=== PATIENT | male | born 1930 | race Caucasian/White ===

== ENCOUNTER 2017-11-28 20:50 | Inpatient (IN) | payer MEDICARE, OTHER ==
--- NOTE | 2017-11-28 21:46 | ED Physician Chart ---
ED Chief Complaint/HPI - Patient Information Date Seen:: 11/28/17 Time Seen:: 21:00 Chief Complaint:: Agitation History of Present Illness:: onset x 3 days of agitation and hostile behavior; no report of trauma, SIs, H/As , neck pain, C/P, SOB, Abd. Pain, A/N/V/D/C, fever, chills, or urinary s/s Allergies:: Allergies Allergy/AdvReac Type Severity Reaction Status Date / Time No Known Allergies Allergy Verified 11/28/17 21:25 Vitals:: Vital Signs - 8 hr 11/28/17 21:00 Temp 97.2 F HR 60 RR 18 BP 157/74 O2 Sat % 100 Historian:: Patient, EMS Review:: Nurse's Note Reviewed, Old Chart Reviewed, EMS run form Reviewed ED Review of Systems - Review of Systems General/Constitutional: No fever, No chills, No weight loss, No weakness, No diaphoresis, No edema, No loss of appetite Skin: No skin lesions, No rash, No bruising Head: No headache, No light-headedness Eyes: No loss of vision, No pain, No diplopia ENT: No earache, No nasal drainage, No sore throat, No tinnitus Neck: No neck pain, No swelling, No thyromegaly, No stiffness, No mass noted Cardio Vascular: No chest pain, No palpitations, No PND, No orthopnea, No edema Pulmonary: No SOB, No cough, No sputum, No wheezing GI: No nausea, No vomiting, No diarrhea, No pain, No melena, No hematochezia, No constipation, No hematemesis G/U: No dysuria, No frequency, No hematuria, No nacturia Musculoskeletal: No bone or joint pain, No back pain, No muscle pain Endocrine: No polyuria, No polydipsia Psychiatric: Prior psych history, Depression, Anxiety, No suicidal ideation, No homicidal ideation, No auditory hallucination, No visual hallucination Hematopoietic: No bruising, No lymphadenopathy Allergic/Immuno: No urticaria, No angioedema Neurological: No syncope, No focal symptoms, No weakness, No paresthesia, No headache, No seizure, No dizziness, No confusion, No vertigo ED Past Medical History - Past Medical History Obtainable: Yes Past Medical History: HTN, Dyslipidemia Family History: HTN Social History: Non Smoker, No Alcohol, No Drug Use, Single, Care Facility Surgical History: None Psychiatricy History: Bipolar Medication: Reviewed Family Medical History - Family Member Mother History Unknown: Yes ED Physical Exam - Physical Examination General/Constitutional: Awake, Well-developed, well-nourished, Alert, No distress, GCS 15, Non-toxic appearing, Ambulatory Head: Atraumatic Eyes: Lids, conjuctiva normal, PERRL, EOMI Skin: Nl inspection, No rash, No skin lesions, No ecchymosis, Well hydrated, No lymphadenopathy ENMT: External ears, nose nl, TM canals nl, Nasal exam nl, Lips, teeth, gums nl , Oropharynx nl, Tonsils nl Neck: Nontender, Full ROM w/o pain, No JVD, No nuchal rigidity, No bruit, No mass, No stridor Respiratory: Nl effort/Exclusion, Clear to Auscultation, No Wheeze/Rhonchi/Rales Cardio Vascular: RRR, No murmur, gallop, rubs, NL S1 S2, Carotid/Femoral/Distal pulses equal bilaterally GI: No tenderness/rebounding/guarding, No organomegaly, No hernia, Normal BS's, Nondistended, No mass/bruits, No McBurney tenderness : No CVA tenderness Extremities: No tenderness or effusion, Full ROM, normal strength in all extremities, No edema, Normal digits & nails Neuro/Psych: Alert/oriented, DTR's symmetric, Normal sensory exam, Normal motor strength, Judgement/insight normal, Mood normal, Normal gait, No focal deficits Other Neuro/Psych comments:: + Psychomotor Agitation; no SIs; Mood/Affect: Labile Misc: Normal back, No paraspinal tenderness ED Labs/Radiology/EKG Results - Lab Results Comments:: Reviewed - EKG Interpretations EKG Time:: 21:15 Rate & Rhythm: 60; NSR Comments:: non-specific st-t changes ED Septic Shock - . Is Septic Shock (SBP<90, OR Lactate>4 mmol\L) present?: No - <6hrs of presentation: Vital Signs: Vital Signs - 8 hr 11/28/18 21:00 Temp 97.2 F HR 60 RR 18 BP 157/74 O2 Sat % 100 ED Reassessment (Disposition) - Reassessment Reassessment Condition:: Improved - Diagnosis Diagnosis:: Agitation; Medical Clearance; Psychosis; Bipolar Disorder - Aftercare/Follow up Instructions Aftercare/Follow-Up Instructions:: Counseled pt regarding lab results/diagnosis & need follow up, Counseled pt & family regarding lab results/diagnosis & need follow up - Patient Disposition Discharge/Transfer:: Acute Care w/in this hosp Admitted to:: [facility] Condition at Disposition:: Stable, Improved
[2017-11-28 22:02] LABS: % BASOPHILS 0.3 % (0.0-2.0); % EOSINOPHILS 2.8 % (0.0-5.0); % LYMPHOCYTES 21.5 % (20.0-50.0); % MONOCYTES 14.8 % (2.0-10.0); % NEUTROPHILS 60.6 % (40.0-80.0); EOSINOPHILE ABSOLUTE 0.1 Th/cmm (0.1-0.4); HEMATOCRIT 43.3 % (41.0-60); HEMOGLOBIN 14.9 gm/dL (12-16); LYMPHOCYTE ABSOLUTE 0.9 Th/cmm (1.5-3.0); MEAN CELL VOLUME 95.6 fl (80-99); MEAN CORPUSCULAR HEMOGLOBIN 32.9 pg (27.0-31.0); MEAN CORPUSCULAR HGB CONC 34.4 pg (28.0-36.0); MEAN PLATELET VOLUME 8.3 fl; MONOCYTE ABSOLUTE 0.6 Th/cmm (0.3-1.0); NEUTROPHILE ABSOLUTE 2.6 Th/cmm (1.8-8.0); PLATELET COUNT 122 Th/cmm (150-400); RED BLOOD COUNT 4.53 Mil/cmm (3.80-5.80); RED CELL DISTRIBUTION WIDTH 12.8 % (11.5-20.0); WHITE BLOOD COUNT 4.2 Th/cmm (4.8-10.8)
[2017-11-28 22:14] LABS: ALB/GLOB RATIO 1.4 (1.0-1.8); ALBUMIN 3.7 gm/dL (4.2-5.5); ALKALINE PHOSPHATASE 53 U/L (34-104); ANION GAP 10.8 (7.0-16.0); BILIRUBIN,TOTAL 0.5 mg/dL (0.3-1.0); BUN - UREA NITROGEN 36 mg/dL (7-25); CALCIUM SERUM 9.6 mg/dL (8.6-10.3); CARBON DIOXIDE 26.5 mEq/L (21.0-31.0); CHLORIDE 103 mEq/L (98-107); CHOLESTEROL 139 mg/dL (<200); CREATININE - SERUM 1.8 mg/dL (0.7-1.3); GLUCOSE 108 mg/dL (70-105); HDL -HIGH DENSITY LIPOPROTEIN 36 mg/dL (23-92); POTASSIUM SERUM 4.3 mEq/L (3.5-5.1); SALICYLATES (ASPIRIN) < 25.0 mg/L (30.0-100.0); SGOT 15 U/L (13-39); SGPT/ALT 16 U/L (7-52); SODIUM SERUM 136 mEq/L (136-145); TOTAL PROTEIN,SERUM 6.3 gm/dL (6.0-8.3); TRIGLYCERIDES 85 mg/dL (<150)
[2017-11-28 23:07] LABS: ACETAMINOPHEN < 10.0 ug/mL (10.0-30.0)
[2017-11-28] MEDS ORDERED: Magnesium Hydroxide (MOM) 30 mL UDC PO PRN (23:13)
[2017-11-28] MEDS ORDERED: Maalox 30 mL Cup PO PRN (23:13)
[2017-11-28 23:31] VITALS: BP 153/96
[2017-11-29] MEDS ORDERED: Non-Formulary Item 1 EA (Valproic Acid [Depakene] 250 MG) PO SCH (09:00)
[2017-11-29] MEDS ORDERED: Non-Formulary Item 1 EA (Metoprolol Succinate [Metoprolol Succinate] 25 MG) PO SCH (09:00)
[2017-11-29] MEDS: Multivitamin Tab PO SCH (09:45)
--- NOTE | 2017-11-29 13:57 | Psychiatric Evaluation ---
DATE OF SERVICE: 11/28/2017 IDENTIFYING DATA: The patient is an 87-year-old male, resident of the [facility]. Information obtained directly interviewing the patient as well as reviewing the admission papers and they are reliable. JUSTIFICATION FOR HOSPITALIZATION: The patient is admitted here on a voluntary basis in view of his agitation and aggressive behavior. CHIEF COMPLAINT: "I do not understand why they had to bring me in here. I did not say much." HISTORY OF PRESENT ILLNESS: This is the first psychiatric hospitalization to [facility] for this patient who has been diagnosed to have mood disorder and is maintained on Depakote and Risperdal. On the day of the hospitalization, the patient has been getting out of control. The patient has been screaming and yelling and has been aggressive towards the staff members and hence has to be admitted over here for stabilization. Sleep and appetite prior to the hospitalization are reported to be poor. Compliance with the medication is noted to be fair. PAST PSYCHIATRIC HISTORY: Details are not known. ____ Physical examination is requested by Dr. Rojas. SUBSTANCE ABUSE HISTORY: None. PHYSICAL OR SEXUAL ABUSE HISTORY: None. LEGAL PROBLEMS: None at this time. STRENGTH AND ASSETS: The patient is motivated. MENTAL STATUS EXAMINATION: The patient is an 87-year-old, looking his stated age, superficially cooperative. Eye contact is poor. Mood is noted to be irritable. Affect is constricted. Insight and judgment are noted to be still impaired. Impulse control is noted to be limited. Coping skills are noted to be limited. The patient has been having difficult time. The patient has poor short and long-term memory deficits. Impulse control is noted to be extremely poor. Insight and judgment are also noted to be very much limited. ASSESSMENT AXIS I: 1A. Mood disorder, not otherwise specified. 1B. Dementia and behavioral changes secondary to it. AXIS II: None. AXIS III: As per Dr. Rojas. IMMEDIATE TREATMENT PLAN: The patient is going to be observed on the inpatient unit, provided with supportive psychotherapy. The patient is going to be closely monitored. Once stabilized, the patient is going to be discharged to [facility] to be followed up on an outpatient basis. JOB# [id number]
[2017-11-29 17:05] LABS: A1C % 5.1 % (4.0-6.0)
[2017-11-29] MEDS: NYSTATIN 100000 UNITS/GM POWD TP SCH ×2 (17:23→17:24)
[2017-11-30] MEDS: Multivitamin Tab PO SCH (09:55)
[2017-11-30] MEDS: NYSTATIN 100000 UNITS/GM POWD TP SCH ×3 (09:57→16:32)
--- NOTE | 2017-11-30 20:56 | Consultation ---
DATE OF CONSULTATION: 11/30/2017 REFERRING PHYSICIAN: Jeny Sanderson M.D. TYPE OF CONSULTATION: Psychology. HISTORY OF PRESENT ILLNESS: The patient is an 87-year-old male. The patient is a resident of [facility]. The following is by record review and by patient self report. The patient is being admitted due to increased agitation and aggressive behavior. According to record review, the staff at the patient's facility report that he had been aggressive towards staff members as well as screaming and yelling and becoming uncontainable and therefore admitted here for stabilization. Reports also include intermittent noncompliance with medication. The patient denied any suicidal ideation, plan or intention at the time of the clinical interview. PAST MEDICAL HISTORY: Please see history and physical by Dr. Rojas. PAST PSYCHIATRIC HISTORY: Details are unknown. Insufficient information available. SUBSTANCE ABUSE HISTORY: The patient denies any history. PSYCHOSOCIAL HISTORY: The patient did not answer questions about occupational or educational history or methodist affiliation. The patient denied any history of physical or sexual abuse. The patient states no current legal problems. The patient is a resident of [facility]. The patient is under the care of a psychiatrist at his shelter facility. MENTAL STATUS EXAMINATION: The patient appears to be his stated age. The patient's attitude is superficially cooperative. Eye contact is poor. Mood is irritable. The patient's speech is loud and the patient is yelling at times during the clinical interview. Thought process appears to be confused. The patient denied any auditory or visual hallucinations or any delusions. The patient denied any suicidal ideation, plan or intention. The patient's behavior has been difficult to redirect on the unit according to staff. Impulse control is inadequate. Concentration is poor. Sensorium is alert and oriented to person and place. The patient did not participate in the memory assessment. The patient did not participate in the interpretation of proverbs. Insight is poor. Judgment is compromised. DIAGNOSTIC IMPRESSION: AXIS I: 1. Mood disorder, not otherwise specified. 2. Dementia with behavioral disturbance. AXIS II: Deferred. AXIS III: Per Dr. Rojas. TREATMENT PLAN: The patient has been seen by Dr. Sanderson for psychiatric evaluation and for the management of the patient's psychotropic medications. We will provide supportive psychotherapy to include motivational enhancement for the patient to become compliant with all aspects of his care and treatment and more specifically being compliant with medication. We will provide de-escalation and limit setting and encourage the patient to be able to verbalize his concerns versus acting out. We will provide coping strategies for phase of life issues. We will encourage the patient to be able to demonstrate emotional and self-regulation prior to his discharge. Thank you, Dr. Sanderson, for this consult and the opportunity to participate with you in this patient's care. [facility]# [id number] MTDD
[2017-12-01] MEDS: Multivitamin Tab PO SCH (09:04)
[2017-12-01] MEDS: NYSTATIN 100000 UNITS/GM POWD TP SCH ×3 (09:22→17:02)
--- NOTE | 2017-12-01 09:28 | History & Physical ---
ADMIT DATE: 11/29/2017 CHIEF COMPLAINT: Psychiatric disorder. HISTORY OF PRESENT ILLNESS: This is an 87-year-old male with underlying history of hypertension, dementia, mental disorder, admitted to Geropsych Unit for underlying psychiatric illness by Dr. Sanderson. The patient denies any current medical complaints or concerns. PAST MEDICAL HISTORY: 1. Hypertension. 2. Dementia. 3. Mental disorders. PAST SURGICAL HISTORY: No new past surgical history. SOCIAL HISTORY: Lives at long term. Denies any alcohol, tobacco or street drug use. CURRENT MEDICATIONS: Tylenol, Maalox, Cordarone, BuSpar, Depakote, Colace, Aricept, Ativan, milk of magnesia, Toprol, Theragran, nystatin. REVIEW OF SYSTEMS: Denies any fever, no chills, no nausea, no abdominal pain, no headache, no diarrhea, no constipation, no bloody stool, no chest pain or trouble breathing ____. PHYSICAL EXAMINATION: VITAL SIGNS: Temperature 97.2, pulse 60, respiration 17, blood pressure 128/57 and oxygen 97% on room air. Pain 0/10. HEENT: Unremarkable. HEART: Sounds normal. LUNGS: Clear. ABDOMEN: Soft, nontender. NEUROLOGIC: Alert, awake, follows commands, moves all extremities. EXTREMITIES: No edema. AVAILABLE LABORATORY DATA: As noted. ASSESSMENT: 1. Hypertension. 2. Acute renal failure. 3. Dementia. 4. Thrombocytopenia. 5. Mental disorders. PLAN: Continue current psychotropic medications ____ psychiatrist. Continue Toprol-XL. We will obtain renal ultrasound. For further evaluation of underlying acute renal failure, monitor renal functions. Fall precautions will be given. Monitor lab and vitals and the patient's condition by nursing staff. JOB# [id number]
--- NOTE | 2017-12-01 09:28 | Progress Notes ---
DATE: 11/30/2017 PSYCHIATRIC PROGRESS NOTE SUBJECTIVE: Staff was spoken to. The patient is interviewed. Mood is noted to be irritable. Affect is constricted. Insight and judgment are noted to be still impaired. Impulse control is noted to be poor. Coping skills are also noted to be very poor. The patient is yelling and screaming. The patient is currently on buspirone 7.5 mg twice a day and Depakote 250 mg twice a day. He has been able to tolerate the medications. No side effects to medications are noted. ASSESSMENT: The patient is still impulsive. PLAN: To continue the patient with supportive therapy and follow up. JOB# [id number]
--- NOTE | 2017-12-01 22:09 | Progress Notes ---
DATE: 12/01/2017 PSYCHIATRIC PROGRESS NOTE SUBJECTIVE: Staff was spoken to. The patient is interviewed. Mood is noted to be irritable. Affect is constricted. Insight and judgment noted to be still impaired. Impulse control is noted to be limited. The patient has been having difficult time to cope with the stress. ASSESSMENT AND PLAN: The patient is still grossly psychotic and impulsive and has been displaying a lot of sexualized behavior, mainly towards the female and the patient is redirected at this time and the patient is going to be closely monitored. The patient is currently on 250 mg of the valproic acid and a low dose of the Seroquel is going to be added tonight that is 12.5 mg and the patient is going to be followed up with supportive therapy. The patient's insight and judgment is noted to be still impaired. Impulse control is noted to be limited. The patient is going to be closely monitored for any aggressive behavior. JOB# [id number]
[2017-12-02] MEDS: NYSTATIN 100000 UNITS/GM POWD TP SCH ×3 (09:29→17:29)
--- NOTE | 2017-12-02 09:31 | Diagnostic Imaging Report ---
Renal ultrasound HISTORY: Abnormal renal function test The right kidney is normal in size (9.7 x 5.0 x 4.1 cm). There is a 2.0 cm sonolucent lesion consistent with cyst noted in the lower cortex. No hydronephrosis. The left kidney is normal in size (10.7 x 5.6 x 5.3 cm). No focal lesions. No hydronephrosis. No intraluminal abnormality seen within the urinary bladder. IMPRESSION: 1. Findings consistent with a right renal cyst 2. No other abnormalities. Specifically, no hydronephrosis.
[2017-12-02] MEDS: Multivitamin Tab PO SCH (09:43)
--- NOTE | 2017-12-02 13:06 | General Progress Note ---
Subjective - Review of Systems Service Date: 12/02/17 Subjective: Patient seen and examined doing fine denied chest pain or shortness of breath Objective - Results Result Diagrams: 11/28/17 21:43 11/28/17 21:43 Recent Labs: Laboratory Last Values WBC 4.2 Th/cmm (4.8-10.8) L 11/28/17 21:43 RBC 4.53 Mil/cmm (3.80-5.80) 11/28/17 21:43 Hgb 14.9 gm/dL (12-16) 11/28/17 21:43 Hct 43.3 % (41.0-60) 11/28/17 21:43 MCV 95.6 fl (80-99) 11/28/17 21:43 MCH 32.9 pg (27.0-31.0) H 11/28/17 21:43 MCHC Differential 34.4 pg (28.0-36.0) 11/28/17 21:43 RDW 12.8 % (11.5-20.0) 11/28/17 21:43 Plt Count 122 Th/cmm (150-400) L 11/28/17 21:43 MPV 8.3 fl 11/28/17 21:43 Neutrophils % 60.6 % (40.0-80.0) 11/28/17 21:43 Lymphocytes % 21.5 % (20.0-50.0) 11/28/17 21:43 Monocytes % 14.8 % (2.0-10.0) H 11/28/17 21:43 Eosinophils % 2.8 % (0.0-5.0) 11/28/17 21:43 Basophils % 0.3 % (0.0-2.0) 11/28/17 21:43 Sodium 136 mEq/L (136-145) 11/28/17 21:43 Potassium 4.3 mEq/L (3.5-5.1) 11/28/17 21:43 Chloride 103 mEq/L (98-107) 11/28/17 21:43 Carbon Dioxide 26.5 mEq/L (21.0-31.0) 11/28/17 21:43 Anion Gap 10.8 (7.0-16.0) 11/28/17 21:43 BUN 36 mg/dL (7-25) H 11/28/17 21:43 Creatinine 1.8 mg/dL (0.7-1.3) H 11/28/17 21:43 Est GFR ( Amer) TNP 11/28/17 21:43 Est GFR (Non-Af Amer) TNP 11/28/17 21:43 BUN/Creatinine Ratio 20.0 11/28/17 21:43 Glucose 108 mg/dL (70-105) H 11/28/17 21:43 Hemoglobin A1c % 5.1 % (4.0-6.0) 11/28/17 21:43 Calcium 9.6 mg/dL (8.6-10.3) 11/28/17 21:43 Total Bilirubin 0.5 mg/dL (0.3-1.0) 11/28/17 21:43 AST 15 U/L (13-39) 11/28/17 21:43 ALT 16 U/L (7-52) 11/28/17 21:43 Alkaline Phosphatase 53 U/L (34-104) 11/28/17 21:43 Troponin I < 0.01 ng/mL (0.01-0.05) L 11/28/17 21:43 Total Protein 6.3 gm/dL (6.0-8.3) 11/28/17 21:43 Albumin 3.7 gm/dL (4.2-5.5) L 11/28/17 21:43 Globulin 2.6 gm/dL 11/28/17 21:43 Albumin/Globulin Ratio 1.4 (1.0-1.8) 11/28/17 21:43 Triglycerides 85 mg/dL (<150) 11/28/17 21:43 Cholesterol 139 mg/dL (<200) 11/28/17 21:43 LDL Cholesterol Direct 86 mg/dL (75-193) 11/28/17 21:43 HDL Cholesterol 36 mg/dL (23-92) 11/28/17 21:43 TSH 0.51 uIU/ml (0.34-5.60) 11/28/17 21:43 Salicylates < 25.0 mg/L (30.0-100.0) L 11/28/17 21:43 Acetaminophen < 10.0 ug/mL (10.0-30.0) L 11/28/17 21:43 Valproic Acid 48.0 ug/mL (50.0-100.0) L 11/28/17 21:43 Ethyl Alcohol < 10 mg/dL (0-10) 11/28/17 21:43 RPR NONREACTIVE (NONREACTIVE) 11/28/17 21:43 - Physical Exam Vitals and I&O: Vital Signs Temp 97.4 F 12/02/17 05:04 Pulse 61 12/02/17 09:46 Resp 18 12/02/17 05:04 BP 151/67 12/02/17 09:46 Pulse Ox 100 12/02/17 05:04 Intake & Output 12/01/17 12/02/17 12/02/17 18:59 06:59 18:59 Intake Total 1979 Balance 1979 Intake: Oral 1830 Other 150 Other: # Voids 2 # Bowel Movements 0 Active Medications: Current Medications Acetaminophen (Tylenol) 650 mg PO Q4HR PRN PRN Reason: Mild Pain / Temp above 100 Stop: 01/27/18 23:12 Al Hydrox/Mg Hydrox/Simethicone (Maalox) 30 ml PO Q4HR PRN PRN Reason: GI DISTRESS Stop: 01/27/18 23:12 Amiodarone HCl (Cordarone) 200 mg PO BID [facility] Stop: 01/28/18 08:59 Last Admin: 12/02/17 09:46 Dose: 200 mg Buspirone HCl (Buspar) 7.5 mg PO Q12HR NAIDA; Protocol Stop: 01/28/18 08:59 Last Admin: 12/02/17 09:44 Dose: 7.5 mg Divalproex Sodium (Depakote Dr) 250 mg PO BID [facility] Stop: 01/28/18 16:59 Last Admin: 12/02/17 09:44 Dose: 250 mg Docusate Sodium (Colace) 100 mg PO BID [facility] Stop: 01/28/18 08:59 Last Admin: 12/02/17 09:43 Dose: 100 mg Donepezil HCl (Aricept) 5 mg PO HS [facility] Stop: 01/28/18 20:59 Last Admin: 12/01/17 20:34 Dose: 5 mg Lorazepam (Ativan) 0.5 mg PO Q4HR PRN; Protocol PRN Reason: Anxiety/Agitation Stop: 12/28/17 23:12 Last Admin: 11/29/17 04:38 Dose: 0.5 mg Magnesium Hydroxide (Milk Of Magnesia) 30 ml PO HS PRN PRN Reason: Constipation Metoprolol Succinate (Toprol Xl) 25 mg PO BID [facility] Stop: 01/28/18 16:59 Last Admin: 12/02/17 09:46 Dose: 25 mg Multivitamins/Vitamin C (Theragran) 1 tab PO DAILY NAIDA Stop: 01/28/18 08:59 Last Admin: 12/02/17 09:43 Dose: 1 tab Nystatin (Nystop) 0 units TP BID NAIDA Stop: 01/28/18 16:59 Last Admin: 12/01/17 17:02 Dose: 1 units Nystatin (Nystop) 0 units TP PRN NAIDA Stop: 01/28/18 12:14 Last Admin: 12/01/17 13:10 Dose: Not Given Quetiapine Fumarate (Seroquel) 12.5 mg PO HS NAIDA; Protocol Stop: 01/30/18 20:59 Zolpidem Tartrate (Ambien) 5 mg PO HS PRN PRN Reason: Insomnia Stop: 01/27/18 23:12 Last Admin: 11/30/17 21:55 Dose: 5 mg Cardiovascular: Regular rate Lungs: Clear to auscultation Assessment/Plan - Assessment Assessment: Acute renal failure HTN Mental health disorder - Plan Plan: Renal US reviewed Follow up labs in am Psych management per psych Nutritional Asmnt/Malnutr-PDOC - Dietary Evaluation Malnutrition Findings (Please click <Entered> for more info): Nutritional Asmnt/Malnutrition Start: 11/30/17 17: 31 Text: Status: Complete Freq: Protocol: Document 11/30/17 17:31 LCHENG (Rec: 11/30/17 17:37 [email or web address] [id number]) Nutritional Asmnt/Malnutrition Patient General Information Nutritional Screening High Risk Consult Diagnosis psychosis Pertinent Medical Hx/Surgical Hx HTN, dyslipidemia, bipolar Subjective Information Pt seen sleeping in bed at time of visit. Consult received for IAD. Per EMR, PO intake 100% of meals Current Diet Order/ Nutrition Support low fat Pertinent Medications colace, theragran Pertinent Labs 11/28 BUN 36, Cr 1.8, glucose 108, A1c 5.1 Nutritional Hx/Data Height 1.83 m Height (Calculated Centimeters) 182.9 Current Weight (lbs) 72.575 kg Weight (Calculated Kilograms) 72.6 Weight (Calculated Grams) 59946.8 Gilbert Body Weight 178 Body Mass Index (BMI) 21.7 Weight Status Approriate GI Symptoms GI Symptoms None Last BM none noted Difficult in: None Skin Integrity/Comment: Buttocks, Inguinal area, Perineal area, Scrotal area, Bilateral outer buttocks area have erythema from IAD Current %PO Good (75-100%) Estimated Nutritional Goals BEE in Kcals: Using Current wt Calories/Kcals/Kg 25-30 Kcals Calculated 1143-0955 Protein: Using Current wt Protein g/k Protein Calculated 73 Fluid: ml 1825-2190ml (1ml/kcal) Nutritional Problem 1. Problem Problem altered nutrition related labs Etiology possible renal dysfunction Signs/Symptoms: BUN 36, Cr 1.8 Malnutrition Alert Is there a minimum of two criteria No selected? Query Text:Check all the applicable criteria. A minimum of two criteria are recommended for diagnosis of either severe or non-severe malnutrition. Malnutrition Related to Morbid Obesity Malnutrition related to morbid obesity No Intervention/Recommendation Comments 1. Continue with current diet as ordered. Monitor renal labs 2. Monitor PO intake, wt, labs and skin integrity 3. F/U as low risk in 7 days, 8/3 Expected Outcomes/Goals Expected Outcomes/Goals 1. PO intake to meet at least 75% of nutritional needs. 2. Wt stability, skin to remain intact, labs to approach WNL.
--- NOTE | 2017-12-02 21:04 | Progress Notes ---
DATE: 12/02/2017 PSYCHIATRIC PROGRESS NOTE SUBJECTIVE: Staff was spoken to. The patient is interviewed. Mood is noted to be less irritable. The patient has been isolative today. The patient has a tendency to be sexually preoccupied and the patient is redirected on that issue. No side effects to the medications are noted. The patient has been placed on a very small dose of the valproic acid, which he has been getting 250 mg and Seroquel has been added 12.5 mg at bedtime. ASSESSMENT: The patient is still having mood swings. PLAN: To continue the patient with the supportive therapy and followup. JOB# [id number]
[2017-12-03 08:26] LABS: ANION GAP 9.9 (7.0-16.0); BUN - UREA NITROGEN 27 mg/dL (7-25); CALCIUM SERUM 9.7 mg/dL (8.6-10.3); CARBON DIOXIDE 29.4 mEq/L (21.0-31.0); CHLORIDE 102 mEq/L (98-107); CREATININE - SERUM 1.6 mg/dL (0.7-1.3); GLUCOSE 85 mg/dL (70-105); POTASSIUM SERUM 4.3 mEq/L (3.5-5.1); SODIUM SERUM 137 mEq/L (136-145)
[2017-12-03] MEDS: Multivitamin Tab PO SCH (08:42)
[2017-12-03] MEDS: NYSTATIN 100000 UNITS/GM POWD TP SCH ×3 (08:44→16:40)
--- NOTE | 2017-12-03 14:25 | Progress Notes ---
DATE: 12/03/2017 SUBJECTIVE: Staff was spoken to. The patient is interviewed. Mood is noted to be irritable. Affect is constricted. Insight and judgment at this time are noted to be still impaired. Impulse control is noted to be poor. Coping skills are noted to be poor. The patient is still sexually preoccupied. No side effects to the medications are noted. The patient has been having difficult time to cope with the stress. ASSESSMENT: The patient is still psychotic. PLAN: To continue the patient with supportive therapy and followup. [facility]# [id number]
[2017-12-04] MEDS: Multivitamin Tab PO SCH (09:12)
[2017-12-04] MEDS: NYSTATIN 100000 UNITS/GM POWD TP SCH ×3 (09:13→16:13)
--- NOTE | 2017-12-05 04:30 | Progress Notes ---
DATE: 12/04/2017 SUBJECTIVE: Staff was spoken to. The patient is interviewed. Mood is noted to be less irritable. Affect is appropriate. Not suicidal or homicidal. Coping skills are noted to be improving. The patient's sexualized behavior has been coming under control. No side effects to the medications are noted. ASSESSMENT: The patient is still impulsive and impulsivity is coming down. PLAN: To continue the patient with the current medications. I encouraged the patient to verbalize the concerns rather than to act out. JOB# [id number]
[2017-12-05] MEDS: Multivitamin Tab PO SCH (09:08)
[2017-12-05] MEDS: NYSTATIN 100000 UNITS/GM POWD TP SCH ×2 (09:24→11:54)
--- NOTE | 2017-12-05 23:48 | Progress Notes ---
DATE: 12/05/2017 SUBJECTIVE: Staff was spoken to. The patient is interviewed. Mood is noted to be irritable. Affect is constricted. Insight and judgment at this time are noted to be still impaired. Impulse control seems to be limited. The patient; however, the sexualized behavior has been coming under control. No side effects to the medications are noted. The patient has been able to verbalize the concerns rather than to act out. The patient has been currently on the valproic acid 250 mg twice a day and Seroquel 12.5 mg at bedtime and has been able to tolerate the Seroquel is going to be increased to 25 mg and the patient is going to be followed up with the supportive therapy. [facility]# [id number]
[2017-12-06] MEDS: NYSTATIN 100000 UNITS/GM POWD TP SCH ×2 (09:02→12:02)
[2017-12-06] MEDS: Multivitamin Tab PO SCH (09:44)
--- NOTE | 2017-12-06 15:18 | General Progress Note ---
Subjective - Review of Systems Service Date: 12/06/17 Subjective: Patient seen and examined doing fine denied chest pain or shortness of breath Objective - Results Result Diagrams: 11/28/17 21:43 12/03/17 07:17 Recent Labs: Laboratory Last Values WBC 4.2 Th/cmm (4.8-10.8) L 11/28/17 21:43 RBC 4.53 Mil/cmm (3.80-5.80) 11/28/17 21:43 Hgb 14.9 gm/dL (12-16) 11/28/17 21:43 Hct 43.3 % (41.0-60) 11/28/17 21:43 MCV 95.6 fl (80-99) 11/28/17 21:43 MCH 32.9 pg (27.0-31.0) H 11/28/17 21:43 MCHC Differential 34.4 pg (28.0-36.0) 11/28/17 21:43 RDW 12.8 % (11.5-20.0) 11/28/17 21:43 Plt Count 122 Th/cmm (150-400) L 11/28/17 21:43 MPV 8.3 fl 11/28/17 21:43 Neutrophils % 60.6 % (40.0-80.0) 11/28/17 21:43 Lymphocytes % 21.5 % (20.0-50.0) 11/28/17 21:43 Monocytes % 14.8 % (2.0-10.0) H 11/28/17 21:43 Eosinophils % 2.8 % (0.0-5.0) 11/28/17 21:43 Basophils % 0.3 % (0.0-2.0) 11/28/17 21:43 Sodium 137 mEq/L (136-145) 12/03/17 07:17 Potassium 4.3 mEq/L (3.5-5.1) 12/03/17 07:17 Chloride 102 mEq/L (98-107) 12/03/17 07:17 Carbon Dioxide 29.4 mEq/L (21.0-31.0) 12/03/17 07:17 Anion Gap 9.9 (7.0-16.0) 12/03/17 07:17 BUN 27 mg/dL (7-25) H 12/03/17 07:17 Creatinine 1.6 mg/dL (0.7-1.3) H 12/03/17 07:17 Est GFR ( Amer) TNP 12/03/17 07:17 Est GFR (Non-Af Amer) TNP 12/03/17 07:17 BUN/Creatinine Ratio 16.9 12/03/17 07:17 Glucose 85 mg/dL (70-105) 12/03/17 07:17 Hemoglobin A1c % 5.1 % (4.0-6.0) 11/28/17 21:43 Calcium 9.7 mg/dL (8.6-10.3) 12/03/17 07:17 Total Bilirubin 0.5 mg/dL (0.3-1.0) 11/28/17 21:43 AST 15 U/L (13-39) 11/28/17 21:43 ALT 16 U/L (7-52) 11/28/17 21:43 Alkaline Phosphatase 53 U/L (34-104) 11/28/17 21:43 Troponin I < 0.01 ng/mL (0.01-0.05) L 11/28/17 21:43 Total Protein 6.3 gm/dL (6.0-8.3) 11/28/17 21:43 Albumin 3.7 gm/dL (4.2-5.5) L 11/28/17 21:43 Globulin 2.6 gm/dL 11/28/17 21:43 Albumin/Globulin Ratio 1.4 (1.0-1.8) 11/28/17 21:43 Triglycerides 85 mg/dL (<150) 11/28/17 21:43 Cholesterol 139 mg/dL (<200) 11/28/17 21:43 LDL Cholesterol Direct 86 mg/dL (75-193) 11/28/17 21:43 HDL Cholesterol 36 mg/dL (23-92) 11/28/17 21:43 TSH 0.51 uIU/ml (0.34-5.60) 11/28/17 21:43 Salicylates < 25.0 mg/L (30.0-100.0) L 11/28/17 21:43 Acetaminophen < 10.0 ug/mL (10.0-30.0) L 11/28/17 21:43 Valproic Acid 48.0 ug/mL (50.0-100.0) L 11/28/17 21:43 Ethyl Alcohol < 10 mg/dL (0-10) 11/28/17 21:43 RPR NONREACTIVE (NONREACTIVE) 11/28/17 21:43 - Physical Exam Vitals and I&O: Vital Signs Temp 98.3 F 12/06/17 14:00 Pulse 92 12/06/17 14:00 Resp 18 12/06/17 14:00 BP 116/68 12/06/17 14:00 Pulse Ox 98 12/06/17 14:00 Intake & Output 12/05/17 12/06/17 12/06/17 18:59 06:59 18:59 Intake Total 1550 Balance 1550 Intake: Oral 1550 Other: # Voids 4 # Bowel Movements 1 Active Medications: Current Medications Acetaminophen (Tylenol) 650 mg PO Q4HR PRN PRN Reason: Mild Pain / Temp above 100 Stop: 01/27/18 23:12 Al Hydrox/Mg Hydrox/Simethicone (Maalox) 30 ml PO Q4HR PRN PRN Reason: GI DISTRESS Stop: 01/27/18 23:12 Amiodarone HCl (Cordarone) 200 mg PO BID [facility] Stop: 01/28/18 08:59 Last Admin: 12/06/17 09:47 Dose: 200 mg Buspirone HCl (Buspar) 7.5 mg PO Q12HR [facility]; Protocol Stop: 01/28/18 08:59 Last Admin: 12/06/17 09:47 Dose: 7.5 mg Divalproex Sodium (Depakote Dr) 250 mg PO BID [facility] Stop: 01/28/18 16:59 Last Admin: 12/06/17 09:46 Dose: 250 mg Docusate Sodium (Colace) 100 mg PO BID [facility] Stop: 01/28/18 08:59 Last Admin: 12/06/17 09:44 Dose: 100 mg Donepezil HCl (Aricept) 5 mg PO HS [facility] Stop: 01/28/18 20:59 Last Admin: 12/05/17 20:45 Dose: 5 mg Lorazepam (Ativan) 0.5 mg PO Q4HR PRN; Protocol PRN Reason: Anxiety/Agitation Stop: 12/28/17 23:12 Last Admin: 12/05/17 20:44 Dose: 0.5 mg Magnesium Hydroxide (Milk Of Magnesia) 30 ml PO HS PRN PRN Reason: Constipation Metoprolol Succinate (Toprol Xl) 25 mg PO BID [facility] Stop: 01/28/18 16:59 Last Admin: 12/06/17 09:45 Dose: 25 mg Multivitamins/Vitamin C (Theragran) 1 tab PO DAILY [facility] Stop: 01/28/18 08:59 Last Admin: 12/06/17 09:44 Dose: 1 tab Nystatin (Nystop) 0 units TP BID [facility] Stop: 01/28/18 16:59 Last Admin: 12/05/17 09:24 Dose: 100,000 units Nystatin (Nystop) 0 units TP PRN [facility] Stop: 01/28/18 12:14 Last Admin: 12/05/17 11:54 Dose: Not Given Quetiapine Fumarate (Seroquel) 25 mg PO HS [facility]; Protocol Stop: 02/03/18 20:59 Last Admin: 12/05/17 20:45 Dose: 25 mg Zolpidem Tartrate (Ambien) 5 mg PO HS PRN PRN Reason: Insomnia Stop: 01/27/18 23:12 Last Admin: 12/04/17 21:47 Dose: 5 mg Cardiovascular: Regular rate Lungs: Clear to auscultation Assessment/Plan - Assessment Assessment: Acute renal failure HTN Mental health disorder - Plan Plan: Renal function seems better Continue current treatment Psych management per psych Nutritional Asmnt/Malnutr-PDOC - Dietary Evaluation Malnutrition Findings (Please click <Entered> for more info): Nutritional Asmnt/Malnutrition Start: 11/30/17 17: 31 Text: Status: Complete Freq: Protocol: Document 11/30/17 17:31 LCHENG (Rec: 11/30/17 17:37 [email or web address] [email or web address]) Nutritional Asmnt/Malnutrition Patient General Information Nutritional Screening High Risk Consult Diagnosis psychosis Pertinent Medical Hx/Surgical Hx HTN, dyslipidemia, bipolar Subjective Information Pt seen sleeping in bed at time of visit. Consult received for IAD. Per EMR, PO intake 100% of meals Current Diet Order/ Nutrition Support low fat Pertinent Medications colace, theragran Pertinent Labs 11/28 BUN 36, Cr 1.8, glucose 108, A1c 5.1 Nutritional Hx/Data Height 1.83 m Height (Calculated Centimeters) 182.9 Current Weight (lbs) 72.575 kg Weight (Calculated Kilograms) 72.6 Weight (Calculated Grams) 32038.8 [place] Body Weight 178 Body Mass Index (BMI) 21.7 Weight Status Approriate GI Symptoms GI Symptoms None Last BM none noted Difficult in: None Skin Integrity/Comment: Buttocks, Inguinal area, Perineal area, Scrotal area, Bilateral outer buttocks area have erythema from IAD Current %PO Good (75-100%) Estimated Nutritional Goals BEE in Kcals: Using Current wt Calories/Kcals/Kg 25-30 Kcals Calculated 2969-9325 Protein: Using Current wt Protein g/k Protein Calculated 73 Fluid: ml 1825-2190ml (1ml/kcal) Nutritional Problem 1. Problem Problem altered nutrition related labs Etiology possible renal dysfunction Signs/Symptoms: BUN 36, Cr 1.8 Malnutrition Alert Is there a minimum of two criteria No selected? Query Text:Check all the applicable criteria. A minimum of two criteria are recommended for diagnosis of either severe or non-severe malnutrition. Malnutrition Related to Morbid Obesity Malnutrition related to morbid obesity No Intervention/Recommendation Comments 1. Continue with current diet as ordered. Monitor renal labs 2. Monitor PO intake, wt, labs and skin integrity 3. F/U as low risk in 7 days, 8/3 Expected Outcomes/Goals Expected Outcomes/Goals 1. PO intake to meet at least 75% of nutritional needs. 2. Wt stability, skin to remain intact, labs to approach WNL.
--- NOTE | 2017-12-06 20:18 | Progress Notes ---
DATE: 12/06/2017 SUBJECTIVE: Staff was spoken to. The patient is interviewed. Mood is awake and anxious. Affect is appropriate. Not suicidal or homicidal. Insight and judgment are noted to be fair. Impulse control is also noted to be fair. No side effects to the medications are noted. ASSESSMENT: The patient is stabilizing. PLAN: To discharge the patient today for followup on an outpatient basis. [facility]# [id number]
== END 2017-12-06 19:40 | DRG 885 ==
LOC: ER 20:50 → GERO2 22:40
PROVIDERS: ADMIT Psychiatry & Neurology Psychiatry; ATTEND Psychiatry & Neurology Psychiatry
DX: F39 Unspecified mood [affective] disorder (principal); N17.9 Acute kidney failure, unspecified; F03.91 Unspecified dementia, unspecified severity, with behavioral disturbance; E78.5 Hyperlipidemia, unspecified; I10 Essential (primary) hypertension; D69.6 Thrombocytopenia, unspecified; Z82.49 Family history of ischemic heart disease and other diseases of the circulatory system
CPT/HCPCS: 36415-UA; 76770-TC; 80048-TC; 80053-TC; 80061-TC; 80164-TC; 80320-TC; 80329-TC; 83036-90; 84443-TC; 84484-TC; 85025-TC; 86592-TC; 93005; G0410; Z7610